=== PATIENT | female | born 1950 | race Caucasian/White ===

== ENCOUNTER 2017-10-21 08:30 | Emergency (ER) | payer MEDICARE ==
[2017-10-21 08:53] LABS: BASOPHILS % (AUTO) 0.3 % (0.0-5.0); EOSINOPHILS % (AUTO) 0.4 % (0.0-8.0); HEMATOCRIT 48.9 % (36-48); LYMPHOCYTES % (AUTO) 7.7 % (21.0-51.0); MEAN CORPUSCULAR HEMOGLOBIN 30.1 pg (27.0-33.0); MEAN CORPUSCULAR HGB CONC 34.5 g/dL (32.0-36.0); MEAN CORPUSCULAR VOLUME 87.4 fL (79-99); MONOCYTES % (AUTO) 5.2 % (3.0-13.0); NEUTROPHILS % (AUTO) 86.4 % (40.0-77.0); PLATELET COUNT (AUTO) 309 K/uL (130-400); RED BLOOD CELL COUNT(AUTO) 5.59 MIL/uL (4.00-5.50); RED CELL DISTRIBUTION WIDTH 14.1 % (11.0-15.5); WHITE BLOOD COUNT (AUTO) 15.4 K/uL (4.8-10.8)
[2017-10-21 08:55] LABS: CREATININE 0.9 mg/dL (0.5-1.5); POTASSIUM 3.7 mmol/L (3.5-5.1)
[2017-10-21 09:00] LABS: ALBUMIN 3.9 g/dL (3.5-5.0); BILIRUBIN,TOTAL 0.8 mg/dL (0.2-1.0); TOTAL PROTEIN, SERUM 7.9 g/dL (6.0-8.3)
[2017-10-21 09:11] LABS: APPEARANCE,URINE Cloudy (CLEAR); BILIRUBIN,URINE Negative (NEGATIVE); COLOR,URINE Dark Yellow (YELLOW); GLUCOSE, URINE (UA) TRACE mg/dL (NEGATIVE); KETONES,URINE 15 mg/dL (NEGATIVE); LEUKOCYTE ESTERASE ,URINE Moderate (NEGATIVE); NITRATE,URINE Negative (NEGATIVE); OCCULT BLOOD,URINE Small (NEGATIVE); PH,URINE >=9.0 (5.0-8.0); PROTEIN,URINE POS 1+ (NEGATIVE)
[2017-10-21] MEDS ORDERED: ONDANSETRON HCL 4 MG/2 ML VIAL ONE (09:15)
[2017-10-21] MEDS ORDERED: SODIUM CHLORIDE 0.9% 1000ML 1,000 ML IV ONE (09:15)
[2017-10-21] MEDS ORDERED: MORPHINE SULFATE 2 MG/ML 1ML SYG ONE (09:16)
[2017-10-21 09:54] LABS: BACTERIA,URINE Few /HPF (None Seen)
[2017-10-21 09:55] LABS: MUCUS,URINE Few LPF (None Seen); SQUAMOUS EPITHELIAL CELL,UR Few /HPF (0-2)
== END 2017-10-21 12:47 | disposition home or self-care (01) ==
LOC: EDH 08:30
DX: A09 Infectious gastroenteritis and colitis, unspecified (principal); E86.0 Dehydration; I10 Essential (primary) hypertension; E78.5 Hyperlipidemia, unspecified
CPT/HCPCS: 36415; 71045; 80053; 81001; 85025; 93005; 96361; 96374; 96375; 99285; J2405; J7030

== ENCOUNTER 2018-07-03 07:29 | Inpatient (IN) | payer MEDICARE ==
[~2018-07-03] VITALS: Ht 157.5 cm; Wt 93.8 kg
[2018-07-03] MEDS ORDERED: DiphenhydrAMINE HCL 50 MG/ML VIAL ONE ×2 (07:38→07:43)
[2018-07-03] MEDS ORDERED: IPRATROPIUM/ALBUTEROL SULFATE 3 ML SOLUTION IH ONE ×3 (07:40→23:49)
[2018-07-03 07:45] LABS: BASOPHILS % (AUTO) 0.9 % (0.0-5.0); EOSINOPHILS % (AUTO) 2.9 % (0.0-8.0); HEMATOCRIT 44.3 % (36-48); LYMPHOCYTES % (AUTO) 27.7 % (21.0-51.0); MEAN CORPUSCULAR HEMOGLOBIN 29.9 pg (27.0-33.0); MEAN CORPUSCULAR HGB CONC 34.1 g/dL (32.0-36.0); MEAN CORPUSCULAR VOLUME 87.7 fL (79-99); MONOCYTES % (AUTO) 10.1 % (3.0-13.0); NEUTROPHILS % (AUTO) 58.4 % (40.0-77.0); PLATELET COUNT (AUTO) 283 K/uL (130-400); RED BLOOD CELL COUNT(AUTO) 5.05 MIL/uL (4.00-5.50); RED CELL DISTRIBUTION WIDTH 13.3 % (11.0-15.5); WHITE BLOOD COUNT (AUTO) 7.5 K/uL (4.8-10.8)
[2018-07-03] MEDS ORDERED: NITROGLYCERIN 1GM/1 INCH PACKET TD ONE (07:49)
[2018-07-03 07:50] LABS: CREATININE 0.9 mg/dL (0.5-1.5); POTASSIUM 3.3 mmol/L (3.5-5.1)
[2018-07-03 07:57] LABS: ALBUMIN 3.5 g/dL (3.5-5.0); BILIRUBIN,DIRECT 0.1 mg/dL (0.0-0.3); BILIRUBIN,TOTAL 0.5 mg/dL (0.2-1.0); TOTAL PROTEIN, SERUM 7.6 g/dL (6.0-8.3)
[2018-07-03 08:14] LABS: B-TYPE NATRIURETIC PEPTIDE 19 pg/mL (0-100)
[2018-07-03] MEDS ORDERED: BENZONATATE 100 MG CAPSULE PO ONE (10:11)
[2018-07-03] MEDS ORDERED: POTASSIUM CHLORIDE 20 MEQ ERTAB PO ONE (11:20)
[2018-07-03] MEDS ORDERED: SODIUM CHLORIDE 0.9% 10 ML VIAL IVP PRN (13:30)
[2018-07-03] MEDS: METHYLPREDNISOLONE SOD SUCC 40MG/ML 1ML IVP SCH ×2 (13:30→19:30)
[2018-07-03] MEDS ORDERED: IOHEXOL-350 75 ML VIAL IV ONE (13:39)
[2018-07-03] MEDS ORDERED: LOPERAMIDE HCL 2 MG CAP PO ONE ×2 (14:55→23:28)
[2018-07-03] MEDS: IPRATROPIUM/ALBUTEROL SULFATE 3 ML SOLUTION IH SCH ×2 (17:36→23:55)
[2018-07-03] MEDS ORDERED: METHYLPREDNISOLONE SOD SUCC 40MG/ML 1ML ONE (20:00)
[2018-07-03] MEDS ORDERED: LEVOFLOXACIN 500 MG/D5W 100 ML 100 ML ONE (20:01)
[2018-07-03] MEDS ORDERED: ACETAMINOPHEN 325 MG TAB ONE (20:14)
[2018-07-04] MEDS ORDERED: METHYLPREDNISOLONE SOD SUCC 125MG/2ML VIAL ONE ×2 (05:16→11:40)
[2018-07-04 05:30] LABS: BASOPHILS % (AUTO) 0.3 % (0.0-5.0); EOSINOPHILS % (AUTO) 0.1 % (0.0-8.0); HEMATOCRIT 45.3 % (36-48); LYMPHOCYTES % (AUTO) 24.4 % (21.0-51.0); MEAN CORPUSCULAR HEMOGLOBIN 30.1 pg (27.0-33.0); MEAN CORPUSCULAR HGB CONC 33.9 g/dL (32.0-36.0); MEAN CORPUSCULAR VOLUME 88.5 fL (79-99); MONOCYTES % (AUTO) 5.2 % (3.0-13.0); NUCLEATED RED BLOOD CELLS 0.1 % (0.0-0.19); PLATELET COUNT (AUTO) 269 K/uL (130-400); RED BLOOD CELL COUNT(AUTO) 5.12 MIL/uL (4.00-5.50)
[2018-07-04 05:35] LABS: MAGNESIUM 2.4 mg/dL (1.80-2.40); POTASSIUM 3.8 mmol/L (3.5-5.1)
[2018-07-04] MEDS: IPRATROPIUM/ALBUTEROL SULFATE 3 ML SOLUTION IH SCH ×4 (05:44→23:36)
[2018-07-04] MEDS ORDERED: BENZONATATE 100 MG CAPSULE PO ONE (08:50)
[2018-07-04] MEDS: LEVOFLOXACIN 500 MG/D5W 100 ML 100 ML IV SCH (09:00)
[2018-07-04] MEDS ORDERED: IPRATROPIUM/ALBUTEROL SULFATE 3 ML SOLUTION IH ONE ×3 (10:17→17:15)
[2018-07-04] MEDS ORDERED: LEVOFLOXACIN 500 MG/D5W 100 ML 100 ML ONE (11:40)
[2018-07-04] MEDS ORDERED: LOPERAMIDE HCL 2 MG CAP PO ONE (14:40)
[2018-07-04] MEDS ORDERED: METHYLPREDNISOLONE SOD SUCC 40MG/ML 1ML ONE ×2 (19:30→21:37)
[2018-07-04 22:00] VITALS: BP 162/70
[2018-07-04] MEDS ORDERED: ALBU0.63 IH (22:30)
[2018-07-04] MEDS ORDERED: FLUT15.88 NS (22:30)
[2018-07-04] MEDS ORDERED: FEXO1TAB8 PO (22:30)
[2018-07-04] MEDS ORDERED: PRED20TA3 PO (22:30)
[2018-07-04] MEDS ORDERED: ESOM20CA60 PO (22:30)
[2018-07-04] MEDS ORDERED: PROM5SYR PO (22:30)
[2018-07-04] MEDS ORDERED: FAMO20TA8 PO (22:30)
[2018-07-04] MEDS ORDERED: SIMV20TA6 PO (22:30)
[2018-07-04 23:00] VITALS: BP 147/70
[2018-07-05] MEDS: METHYLPREDNISOLONE SOD SUCC 40MG/ML 1ML IVP SCH ×4 (00:45→21:02)
[2018-07-05 03:00] VITALS: BP 115/57
[2018-07-05] MEDS: IPRATROPIUM/ALBUTEROL SULFATE 3 ML SOLUTION IH SCH ×4 (06:36→23:52)
[2018-07-05 08:34] VITALS: BP 112/78
--- NOTE | 2018-07-05 09:09 | NUR ---
DC Plan Discussed dcp w/ patient. lives alone, but has strong support from park friends at [employer] [facility]. Denies HH or provider services. has nebulizer and CPAP through [facility]. Denies any falls. Independently performs ADLs. car is here in parking lot, but will try to coordinate w/ park friends to have someone drive her and her car home upon discharge. [facility] has misplaced car keys. Notified Vince colón/ Security and ER Director Dontrell Chamorro of this. [facility] feels safe returning home to same setting. DCP to home. CD Addendum: 07/05/18 at 0911 by CHAPARRO PARR CM Amended: Links added.
[2018-07-05] MEDS: LEVOFLOXACIN 500 MG/D5W 100 ML 100 ML IV SCH (09:34)
[2018-07-05 11:58] VITALS: BP 156/84
[2018-07-05] MEDS ORDERED: GUAIFENESIN-CODEINE 5 ML SYRUP PO PRN (12:45)
[2018-07-05] MEDS: BENZONATATE 100 MG CAPSULE PO SCH ×2 (13:22→21:02)
[2018-07-05 15:58] VITALS: BP 166/77
[2018-07-05 19:57] VITALS: BP 171/76
[2018-07-05 23:21] VITALS: BP 137/70
[2018-07-06] VITALS (19 sets, daily range): BP systolic 133–181; BP diastolic 43–93
[2018-07-06] MEDS: METHYLPREDNISOLONE SOD SUCC 40MG/ML 1ML IVP SCH ×4 (00:49→23:24)
[2018-07-06] MEDS: IPRATROPIUM/ALBUTEROL SULFATE 3 ML SOLUTION IH SCH ×4 (06:05→23:16)
[2018-07-06] MEDS: BENZONATATE 100 MG CAPSULE PO SCH ×3 (09:00→20:40)
[2018-07-06] MEDS ORDERED: PROPOFOL 10 MG/ML 20ML VIAL IV ONE (12:10)
[2018-07-06] MEDS ORDERED: SUCCINYLCHOLINE CHLORIDE 20 MG/ML 10 ML VIAL ONE (12:11)
[2018-07-06] MEDS ORDERED: PROPOFOL 1000 MG/100 ML 100 ML IV ONE (12:23)
--- NOTE | 2018-07-06 13:10 | NUR ---
DR GRIFFIN SAID COUGH IS BECAUSE OF PULMONARY FIBROSIS, NOT ISOLATION
[2018-07-06] MEDS: LEVOFLOXACIN 500 MG/D5W 100 ML 100 ML IV SCH (13:47)
[2018-07-06 17:55] LABS: APPEARANCE BODY FLUID BLOODY (CLEAR); COLOR,BODY FLUID RED (LT YELLOW); SPECIMENTYPE,BODY FLUID LAVAGE; TOTAL VOLUME,BODY FLUID 15 mL
[2018-07-06 17:59] LABS: BODY FLUID RBC 30000 /cu. mm.; BODY FLUID WBC 1450 /cu. mm.
[2018-07-06 18:40] LABS: BF EOSINOPHIL 2 %; BF LYMPHOCYTE 45 %; BF MESOTHELIAL 35 %; BF MONOCYTE 5 %
[2018-07-07] VITALS: BP 175/85
[2018-07-07 04:00] VITALS: BP 165/92
[2018-07-07] MEDS: METHYLPREDNISOLONE SOD SUCC 40MG/ML 1ML IVP SCH (05:38)
[2018-07-07] MEDS: IPRATROPIUM/ALBUTEROL SULFATE 3 ML SOLUTION IH SCH (06:20)
[2018-07-07] MEDS: BENZONATATE 100 MG CAPSULE PO SCH (07:28)
[2018-07-07] MEDS: LEVOFLOXACIN 500 MG/D5W 100 ML 100 ML IV SCH (07:32)
[2018-07-07 07:36] VITALS: BP 162/74
--- NOTE | 2018-07-07 10:55 | NUR ---
DISCHARGE VERBAL & WRITTEN DISCHARGE INSTRUCTIONS REVIEWED & GIVEN TO PT. QUESTIONS ENCOURAGED & CLARIFIED. PROPER CARE & MGT OF SOB/PULMONARY FIBROSIS REVIEWED. NEW PRESCRIBED MEDICATIONS REVIEWED W/PT. PRESCRIPTION GIVEN TO PT, SIGNED COPY PLACED IN CHART. TELE KOKO REMOVED. IV DISCONTINUED. PT TO GATHER PERSONAL BELONGINGS. WILL NOTIFY STAFF WHEN READY TO BE TAKEN TO PRIVATE VEHICLE.
[2018-07-07 11:15] VITALS: BP 162/84
--- NOTE | 2018-07-07 11:40 | NUR ---
DISCHARGE PT TAKEN TO PRIVATE VEHICLE VIA WC BY MYSELF. TOLERATED WELL. NO DISTRESS NOTED.
== END 2018-07-07 11:39 | disposition home or self-care (01) | DRG 196 ==
LOC: EDH 07:29 → EDHIP 13:05 → 2DH 07-04 21:28
PROVIDERS: ADMIT Internal Medicine; ATTEND Internal Medicine
PROC: 0B968ZZ Drainage of Right Lower Lobe Bronchus, Via Natural or Artificial Opening Endoscopic (ICD-10-PCS; principal; 2018-07-06)
PROC: 0B968ZX Drainage of Right Lower Lobe Bronchus, Via Natural or Artificial Opening Endoscopic, Diagnostic (ICD-10-PCS; 2018-07-06)
DX: J84.10 Pulmonary fibrosis, unspecified (principal); J96.21 Acute and chronic respiratory failure with hypoxia; J44.1 Chronic obstructive pulmonary disease with (acute) exacerbation; E87.6 Hypokalemia; I10 Essential (primary) hypertension; K21.9 Gastro-esophageal reflux disease without esophagitis; Z88.8 Allergy status to other drugs, medicaments and biological substances
CPT/HCPCS: 36415; 71045; 71046; 71275; 76000; 80048; 80076; 82550; 83520; 83735; 83880; 84484; 85025; 85378; 86038; 86215; 86235; 86255; 86431; 87046; 87071; 87101; 87116; 87205; 87206; 87324; 87804; 88108; 88305; 89051; 93005; 93306; 94640; 94664; A4218; G0378; J0330; J1200; J1956; J2704; J2920; J2930; Q9967